=== PATIENT | female | born 1970 | race Hispanic/Latino ===

== ENCOUNTER 2024-10-13 00:17 | Emergency (ER) | payer OTHER ==
[~2024-10-13] VITALS: Ht 157.5 cm; Wt 90.3 kg
[2024-10-13 00:48] LABS: BILIRUBIN,URINE NEGATIVE (NEGATIVE); CLARITY,URINE CLEAR (CLEAR); COLOR,URINE YELLOW (YELLOW); GLUCOSE, URINE NEGATIVE (NEGATIVE); KETONES,URINE NEGATIVE (NEGATIVE); LEUKOCYTE ESTERASE ,URINE MODERATE (NEGATIVE); NITRITE,URINE NEGATIVE (NEGATIVE); PH,URINE 6.5 (5 - 7); PROTEIN,URINE DIPSTICK NEGATIVE (NEGATIVE); URINE UROBILINOGEN 0.2 mg/dL (0.2 - 1)
[2024-10-13] MEDS: KETOROLAC TROMETHAMINE 60 MG/2 ML VIAL IM STA (00:56)
[2024-10-13] MEDS: ONDANSETRON HCL 4 MG ORAL DISINTEGRATING TAB PO STA (00:57)
[2024-10-13] MEDS ORDERED: PYRIDIUM100 MG PO (01:42)
[2024-10-13 01:47] LABS: BACTERIA,URINE MANY /HPF; EPITHELIAL CELLS,URINE MODERATE /LPF; RBC,URINE 0-5 /HPF (0-5)
[2024-10-13 02:00] VITALS: PULSE 62; RESP 18; TEMP 98.3; O2SAT 98
== END 2024-10-13 02:15 | disposition home or self-care (01) ==
LOC: ER 00:29
DX: R10.30 Lower abdominal pain, unspecified (principal); N39.0 Urinary tract infection, site not specified; R11.2 Nausea with vomiting, unspecified; I10 Essential (primary) hypertension
CPT/HCPCS: 81001; 99284; J1885; Q0162